=== PATIENT | female | born 1990 | race American Indian/Alaskan Native ===

== ENCOUNTER 2017-02-26 11:06 | Day surgery (SDC) | payer OTHER ==
[2017-01-22 11:45] VITALS: BMI 35.1
[2017-02-26 12:14] VITALS: O2SAT 100
[2017-02-26] MEDS ORDERED: Lactated Ringer's 1,000 ML IV ONE ×2 (12:50)
[2017-02-26] MEDS ORDERED: cefOXitin IV 2 gm in Dextrose 2 GM/50 ML BAG IVPB ONE (12:58)
[2017-02-26] MEDS ORDERED: Midazolam 2 MG/2 ML VIAL ONE (13:11)
[2017-02-26] MEDS ORDERED: Propofol 10 mg/ml Inj (20 ML) ONE (13:11)
[2017-02-26] MEDS ORDERED: HYDROmorphone 0.5 mg/0.5 ml ISec IVP PRN (14:08)
--- NOTE | 2017-02-26 14:09 | PCM.SURG1 ---
Surgeon's Initial Post Op Note - Surgeon's Notes Surgeon: Krystina Taylor MD Aviation Tactical Readiness Officer: none Type of Anesthesia: General LMA Pre-Operative Diagnosis: Submucosal myoma, abnormla uterine bleeding Operative Findings: anteverted uterus, 8-10 weeks size, no adnexal masses, submuocsal myoma protruding into cavity from fundus, bilatealr ostial visulzaed , urine output. 100cc clear yellow urine Post-Operative Diagnosis: same as above Operation Performed: Hyteroscopic myomecotmy, dilation and currettage Specimen/Specimens Removed: submucosal myoma with endomcervical currettings Estimated Blood Loss: EBL {In ML}: 5 Blood Products Given: N/A Drains Used: No Drains Post-Op Condition: Good Date of Surgery/Procedure: 02/26/17 Time of Surgery/Procedure: 13:00
[2017-02-26 15:07] VITALS: TEMP 97.3
[2017-02-26 15:26] VITALS: RESP 18
[2017-02-26 15:33] VITALS: BP 115/82; PULSE 65
--- NOTE | 2017-02-27 05:43 | OP ---
PROCEDURE DATE: 02/27/2017 PREOPERATIVE DIAGNOSES: Submucosal myoma and abnormal uterine bleeding. POSTOPERATIVE DIAGNOSES: Submucosal myoma and abnormal uterine bleeding. OPERATION PERFORMED: Hysteroscopic myomectomy and dilation and curettage. SURGEON: Krystina Taylor MD SEED SALES MANAGER: None. TYPE OF ANESTHESIA: General LMA. OPERATIVE FINDINGS: Anteverted uterus, 8-10 weeks. No adnexal masses. Submucosal myoma protruding into the cavity from fundus, bilateral ostia were visualized. ESTIMATED BLOOD LOSS: 500 mL. BLOOD PRODUCTS: None. URINE OUTPUT: 100 mL. COMPLICATIONS: None. SPECIMENS REMOVED: Submucosal myoma and endometrial curettings. DESCRIPTION OF PROCEDURE: The patient was taken to the operating room where she was given general anesthesia. Once found to be adequate, she was placed on the operating table in the dorsal supine position with legs supported using stirrups. The patient was prepped and draped in the usual sterile fashion. A time-out confirmed correct patient and correct procedure. Red rubber catheter was then inserted into the urethra to drain the bladder. A bimanual exam was performed. Thin retractor was placed in the anterior and posterior fornix of the vagina and the cervix was adequately visualized. Single-toothed tenaculum was placed in the anterior lip of the cervix. The uterus was then sounded to 8 cm and cervix was sequentially dilated. There was noted, both carefully dilated mildly due to the myoma. Following this, hysteroscope was then inserted under direct visualization using normal saline as a distention media. The myoma was noted to be protruding into the cavity and the pressure was then increased with the MyoSure device. Bilateral ostia visualized. Submucosal myoma then was carefully resected under direct visualization using MyoSure device. The hysteroscope was then removed and a gentle curettage was done. The specimen was sent to pathology. Following this, all instruments were removed. There was good hemostasis at the tenaculum puncture sites. At the end of the procedure, all needle, sponge, and instrument counts were noted correct x 2. The patient tolerated the procedure well and was transferred to recovery room in stable condition. Krystina Taylor MD [facility] # [id number]
== END 2017-02-26 15:59 | disposition home or self-care (01) ==
LOC: C.SDS 11:06
PROVIDERS: ATTEND Obstetrics & Gynecology
DX: D25.0 Submucous leiomyoma of uterus (principal); N76.0 Acute vaginitis
CPT/HCPCS: 58558; 82948; 88305; J1100; J1170; J1885; J2001; J2250; J2405; J2704; J3010; J7120